=== PATIENT | male | born 1960 | race Caucasian/White ===

== ENCOUNTER 2016-11-16 16:00 | Inpatient (IN) | payer BC ==
--- NOTE | ~2016-11-16 | PRECARD ---
[facility] [address] [facility] [place]. [address] NAME: DANIEL MCCAULEY : 64 STATUS : ADM Albino PAT#: [id number] AGE: 56 ADM/REG DATE : 11/16/16 MR#: [id number] REPORT SERV DATE: 11/16/16 DICTATED BY: VIVEK YATES DATE: 11/16/16 REPORT STATUS : Draft TRANSCRIBED BY: JARAD DATE: 11/16/16 DATE OF ADMISSION: 11/16/2016 HISTORY OF PRESENT ILLNESS: Mr. Daniel Mccauley is a 56-year-old gentleman, admitted through the emergency room with chest discomfort. Mr. Mccauley has known cardiovascular disease. He sees Dr. Van at the [facility]. He has a stent placed, reports that is drug-eluting stent, he was told to take aspirin and Plavix for one year. He came to [facility] last week, he ruled out for myocardial infarction. His stress test showed anterolateral ischemia. Cardiac catheterization was suggested, he left the hospital against medical advice, AMA. He was doing well subsequently. He saw his physician today, Dr. Chester Flores, who convinced him to be admitted to the hospital. He states he had no chest discomfort since he left the hospital. He developed chest discomfort after he saw Dr. Flores earlier today and had this discussion. At this time, he is feeling great. He has no discomfort at all. He denies orthopnea or PND. No palpitations. PAST MEDICAL HISTORY: Hypertension, asthma, diabetes, and esophageal reflux. MEDICATIONS: Aspirin, Lipitor, carvedilol, losartan, hydrochlorothiazide, metformin, and omeprazole. SOCIAL HISTORY: Denies alcohol, ongoing tobacco use. REVIEW OF SYSTEMS: Complete review of systems was obtained, pertinent negative and unremarkable except as noted above and below. All systems addressed. PHYSICAL EXAMINATION: VITAL SIGNS: Blood pressure 140/80, heart rate about 70. GENERAL: Comfortable, in no acute distress. HEENT: No xanthelasma; lips without cyanosis LUNGS: Clear to auscultation, no wheezes, rales or rhonchi; good breath sounds. COR: No JVD or hepatojugular reflux, no murmurs, rubs or gallops, impulse mid clavicular line without carotid or abdominal bruits; normal S1 and S2. ABDOMEN: Bowel sounds positive, normal activity, without tenderness, masses or hepatosplenomegaly. EXTREMITIES: No edema, cyanosis. SKIN: Normal turgor. MS: Normal muscle strength, without kyphosis/scoliosis. [facility]&P [address] [address] NAME: DANIEL MCCAULEY : 64 STATUS : ADM Albino PAT#: [id number] AGE: 56 ADM/REG DATE : 11/16/16 MR#: [id number] REPORT SERV DATE: 11/16/16 DICTATED BY: VIVEK YATES DATE: 11/16/16 REPORT STATUS : Draft TRANSCRIBED BY: JARAD DATE: 11/16/16 NEURO/PSYCH: Alert and oriented times 4, no apparent anxiety or depression. LABORATORY DATA: White count 12.4, hematocrit 39.9, platelet count is 245,000. BUN is 20, creatinine 0.8. Troponin 0.07. EKG: Sinus rhythm without ischemia. ASSESSMENT: Mr. Mccauley is a 56-year-old gentleman with known coronary artery disease, with abnormal stress test earlier in this week, catheterization was recommended, he left the hospital against medical advice. He returns today at this time denying any chest discomfort. His EKG is normal. Troponin is 0.07. PLAN: 1. We will admit for observation now. 2. Proceed with cardiac catheterization and possible angioplasty. I discussed risks, benefits, alternatives with Mr. Mccauley. He understands and requests to proceed to proceed. We will treat with his aspirin, his current medical regimen, and add nitroglycerin paste. Subsequent decisions will be based upon the result of his cardiac catheterization. LEYLA/JARAD Vivek Yates M.D. / [id number] CC: Chester Flores III, D.O.
[2016-11-16 13:40] LABS: BASOPHILS 0.2 %; BASOPHILS ABSOLUTE 0.03 10/3/uL (0.0-0.16); EOSINOPHILS ABSOLUTE 0.13 10/3/uL (0.0-0.53); HEMATOCRIT 39.9 % (40.0-51.0); HEMOGLOBIN 13.4 g/dL (13.6-17.8); IMMATURE GRANULOCYTES 0.2 %; IMMATURE GRANULOCYTES ABSOLUTE 0.03 10/3/uL (0.0-0.11); LYMPHOCYTES 37.4 %; LYMPHOCYTES ABSOLUTE 4.64 10/3/uL (0.67-4.30); MEAN CORPUS HGB CONC 33.6 g/dL (32.0-36.0); MEAN CORPUSCULAR HEMOGLOB 29.5 pg (26.0-34.0); MEAN CORPUSCULAR VOLUME 87.9 fL (80-100); MONOCYTES 7.9 %; MONOCYTES ABSOLUTE 0.98 10/3/uL (0.21-1.20); NEUTROPHILS 53.3 %; PLATELET COUNT 245 10/3/uL (150-400); RED CELL COUNT 4.54 10/6/uL (4.7-6.1); WHITE BLOOD CELLS 12.4 10/3/uL (4.5-10.5)
[2016-11-16 13:42] LABS: MANUAL DIFF NO %
[2016-11-16 13:49] LABS: PARTIAL THROMBO TIME 25.2 SEC (22.5-37.2); PROTIME (NOT ORD) 13.4 SEC (12.0-14.5)
[2016-11-16 13:56] LABS: BUN (BLOOD UREA NITROGEN) 20 MG/DL (6-23); CALCIUM, SERUM 8.1 MG/DL (8.5-10.4); CHLORIDE, SERUM 103 MMOL/L (96-112); CO2 (CARBON DIOXIDE) 27 MMOL/L (24-34); CREATININE 0.83 MG/DL (0.70-1.30); GFR AFRICAN AMERICAN 116 ML/MIN (>=60); GFR NON AFRICAN AMERICAN 100 ML/MIN (>=60); POTASSIUM, SERUM 3.6 MMOL/L (3.5-5.3); SODIUM, SERUM 139 MMOL/L (135-148)
[2016-11-16 13:57] LABS: GLUCOSE, SERUM 137 MG/DL (60-99)
[2016-11-16 13:58] LABS: CHEST PAIN PROFILE TAT 0 Hrs 22 Mins; TROPONIN I 0.07 NG/ML (<0.05)
[~2016-11-16 16:00] MED LIST: ASAB PO; COREG12 PO; HYZAAR1 TAB PO; LIPITOR40 PO; PRILOSEC40 MG PO
[2016-11-17 03:50] LABS: ASCORBIC ACID (UR NOT ORDER) NEG (NEG); BILIRUBIN, URINE NEGATIVE (NEG); KETONE, URINE NEGATIVE (NEG); LEUKOCYTE ESTERASE(NOT OR NEG (NEG); WBC (NOT ORDERED) (RFLEX) < 1 (0-5)
[2016-11-17 06:43] LABS: PROTIME (NOT ORD) 13.4 SEC (12.0-14.5)
[2016-11-17 06:48] LABS: BASOPHILS 0.3 %; BASOPHILS ABSOLUTE 0.03 10/3/uL (0.0-0.16); EOSINOPHILS ABSOLUTE 0.19 10/3/uL (0.0-0.53); HEMATOCRIT 41.6 % (40.0-51.0); IMMATURE GRANULOCYTES 0.1 %; IMMATURE GRANULOCYTES ABSOLUTE 0.01 10/3/uL (0.0-0.11); MEAN CORPUS HGB CONC 33.7 g/dL (32.0-36.0); MEAN CORPUSCULAR HEMOGLOB 30.3 pg (26.0-34.0); MEAN PLATELET VOLUME 10.5 fL (9.2-13.0); MONOCYTES 8.3 %; MONOCYTES ABSOLUTE 0.79 10/3/uL (0.21-1.20); NEUTROPHILS 49.3 %; NEUTROPHILS ABSOLUTE 4.68 10/3/uL (2.02-8.40); PLATELET COUNT 219 10/3/uL (150-400); RED CELL COUNT 4.62 10/6/uL (4.7-6.1); WHITE BLOOD CELLS 9.5 10/3/uL (4.5-10.5)
[2016-11-17 06:49] LABS: BUN (BLOOD UREA NITROGEN) 18 MG/DL (6-23); CALCIUM, SERUM 8.4 MG/DL (8.5-10.4); CHLORIDE, SERUM 103 MMOL/L (96-112); CHOL/HDL RATIO(NOT ORDER) 4.7 (0-5); CHOLESTEROL 117 MG/DL (< 200); CO2 (CARBON DIOXIDE) 25 MMOL/L (24-34); CREATININE 0.79 MG/DL (0.70-1.30); GFR AFRICAN AMERICAN 118 ML/MIN (>=60); GFR NON AFRICAN AMERICAN 102 ML/MIN (>=60); GLUCOSE, SERUM 137 MG/DL (60-99); HDL CHOLESTEROL 25 MG/DL (> 39); LDL CHOLESTEROL 46 MG/DL (< 130); NON-HDL CHOLESTEROL 92 MG/DL (< 160); SGPT(ALT) 44 U/L (5-65); SODIUM, SERUM 141 MMOL/L (135-148); TRIGLYCERIDE 230 MG/DL (< 150); TROPONIN I 0.04 NG/ML (<0.05)
[2016-11-17 06:50] LABS: MANUAL DIFF NO %
[2016-11-18 05:39] LABS: HEMATOCRIT 40.7 % (40.0-51.0); HEMOGLOBIN 13.9 g/dL (13.6-17.8)
[2016-11-18 05:40] LABS: BUN (BLOOD UREA NITROGEN) 18 MG/DL (6-23); CALCIUM, SERUM 8.5 MG/DL (8.5-10.4); CHLORIDE, SERUM 104 MMOL/L (96-112); CO2 (CARBON DIOXIDE) 26 MMOL/L (24-34); CREATININE 0.98 MG/DL (0.70-1.30); GFR AFRICAN AMERICAN 101 ML/MIN (>=60); GFR NON AFRICAN AMERICAN 87 ML/MIN (>=60); GLUCOSE, SERUM 159 MG/DL (60-99); POTASSIUM, SERUM 3.9 MMOL/L (3.5-5.3); SODIUM, SERUM 139 MMOL/L (135-148)
[2016-11-18] MEDS ORDERED: NITROQUICK0.4 MG SL (08:46)
[2016-11-18] MEDS ORDERED: PLAVIX PO (08:46)
== END 2016-11-18 09:53 | disposition home or self-care (01) | DRG 247 ==
LOC: ER 16:00 → 6NO 19:59 → SSU1 11-17 15:13
PROVIDERS: Emergency Medicine; Internal Medicine Cardiovascular Disease
PROC: 027235Z Dilation of Coronary Artery, Three Arteries with Two Drug-eluting Intraluminal Devices, Percutaneous Approach (ICD-10-PCS; principal; 2016-11-17)
PROC: 4A023N7 Measurement of Cardiac Sampling and Pressure, Left Heart, Percutaneous Approach (ICD-10-PCS; 2016-11-17)
PROC: B2151ZZ Fluoroscopy of Left Heart using Low Osmolar Contrast (ICD-10-PCS; 2016-11-17)
PROC: B2111ZZ Fluoroscopy of Multiple Coronary Arteries using Low Osmolar Contrast (ICD-10-PCS; 2016-11-17)
DX: I25.110 Atherosclerotic heart disease of native coronary artery with unstable angina pectoris (principal); N17.9 Acute kidney failure, unspecified; I10 Essential (primary) hypertension; E11.9 Type 2 diabetes mellitus without complications; K21.9 Gastro-esophageal reflux disease without esophagitis; J45.909 Unspecified asthma, uncomplicated; M19.90 Unspecified osteoarthritis, unspecified site; R30.0 Dysuria; L30.9 Dermatitis, unspecified; K52.9 Noninfective gastroenteritis and colitis, unspecified; E78.00 Pure hypercholesterolemia, unspecified; E78.2 Mixed hyperlipidemia; J44.9 Chronic obstructive pulmonary disease, unspecified; Z95.5 Presence of coronary angioplasty implant and graft; Z98.890 Other specified postprocedural states; Z82.49 Family history of ischemic heart disease and other diseases of the circulatory system
CPT/HCPCS: 71010; 80048; 80061; 81001; 82962; 83735; 84460; 84484; 85014; 85018; 85025; 85347; 85610; 85730; 92920; 93005; 93458; 96374; 96375; 96376; 99152; 99153; 99285; A9270-GY; C1725; C1769; C1874; C1887; C1894; C9600; J0360; J1200; J2250; J3010; Q9967